=== PATIENT | male | born 1935 | race Caucasian/White ===

== ENCOUNTER 2023-01-02 16:49 | Inpatient (IN) | payer OTHER ==
[2023-01-02 16:59] VITALS: BMI 20.6
[2023-01-02] MEDS ORDERED: Acetaminophen 650 MG Suppository PR PRN (17:45)
[2023-01-02] MEDS ORDERED: Lorazepam 2 MG/ML VIAL SLOW IVP PRN (17:45)
[2023-01-02] MEDS ORDERED: Scopolamine 1 mg/72 hour Patch TOP PRN (17:45)
[2023-01-02] MEDS: Morphine 2 MG/ML VIAL SLOW IVP PRN (22:43)
[2023-01-03 07:29] VITALS: BP 102/68; TEMP 100.6
[2023-01-03] MEDS: Morphine 2 MG/ML VIAL SLOW IVP PRN (09:42)
[2023-01-03] MEDS ORDERED: Morphine 4 MG/ML VIAL SLOW IVP SCH (13:00)
[2023-01-03] MEDS ORDERED: Lorazepam 2 MG/ML VIAL SLOW IVP SCH (13:00)
== END 2023-01-03 11:11 | disposition expired | DRG 951 ==
LOC: IMCU/EMU 16:49 → MSONC 18:42 → T4-A 21:47
PROVIDERS: ADMIT Family Medicine; ATTEND Family Medicine
DX: Z51.5 Encounter for palliative care (principal); A41.9 Sepsis, unspecified organism; G93.41 Metabolic encephalopathy; N39.0 Urinary tract infection, site not specified; L03.113 Cellulitis of right upper limb; K76.82 Hepatic encephalopathy; G30.9 Alzheimer's disease, unspecified; F02.80 Dementia in other diseases classified elsewhere, unspecified severity, without behavioral disturbance, psychotic disturbance, mood disturbance, and anxiety; I10 Essential (primary) hypertension; E03.9 Hypothyroidism, unspecified
CPT/HCPCS: J2272